=== PATIENT | male | born 1955 ===

== ENCOUNTER 2024-01-20 15:57 | Emergency (ER) | payer MEDICARE ==
[~2024-01-20] VITALS: Ht 177.8 cm; Wt 103.0 kg
[~2024-01-20 15:57] MED LIST: ALBU8HFA PO; ALLO300T8 PO; AMLO10TA13 PO; AZI25OT PO; CEFD300C3 PO; CYCL-1 PO; HYDR-3965 PO; HYDR25TA5 PO; LACT1CAP74 PO; LISI40TA13 PO; METO-395 PO; OMEP20CA16 PO; PRED20TA PO
[2024-01-20 16:00] VITALS: BP 123/71; PULSE 89; RESP 16; TEMP 99.1; O2SAT 97
== END 2024-01-20 16:46 | disposition home or self-care (01) ==
LOC: ER 15:58
DX: Z00.00 Encounter for general adult medical examination without abnormal findings (principal); I10 Essential (primary) hypertension; Z79.899 Other long term (current) drug therapy; Z79.52 Long term (current) use of systemic steroids
CPT/HCPCS: 99281

== ENCOUNTER 2024-07-10 17:24 | Inpatient (IN) | payer MEDICARE ==
[~2024-07-10] VITALS: Ht 177.8 cm; Wt 98.0 kg
[~2024-07-10 17:24] MED LIST changes: -ALBU8HFA PO; -CEFD300C3 PO; -HYDR-3965 PO; -PRED20TA PO
[2024-07-10 19:12] LABS: BASOPHILS % (AUTO) 0.2 % (0-1); EOSINOPHILS % (AUTO) 0 % (0-6); HEMATOCRIT 38.6 % (42.0-52.0); HEMOGLOBIN 13.7 g/dl (14.0-17.9); LYMPHOCYTES # (AUTO) 0.5 X10'3 (1.1-4.8); LYMPHOCYTES % (AUTO) 6.8 % (21-51); MEAN CORPUSCULAR HEMOGLOBIN 35.6 PG (27.0-31.0); MEAN CORPUSCULAR HGB CONC 35.4 g/dL (33.0-36.5); MEAN CORPUSCULAR VOLUME 100.7 FL (78-98); MEAN PLATELET VOLUME 8.4 FL (7.4-10.4); MONOCYTES # (AUTO) 0.7 X10'3 (0-0.9); MONOCYTES % (AUTO) 9.4 % (2-12); NEUTROPHILS # (AUTO) 6.1 X10'3 (1.8-7.7); NEUTROPHILS % (AUTO) 83.6 % (42-75); PLATELET COUNT 116 X10'3 (140-440); RED BLOOD COUNT 3.84 X10'6 (4.70-6.10); RED CELL DISTRIBUTION WIDTH 15.5 % (11.5-14.5); WHITE BLOOD COUNT 7.3 X10'3 (4.5-11.0)
[2024-07-10 19:27] LABS: ALANINE AMINOTRANSFERASE 212 U/L (12-78); ALBUMIN 3.6 G/DL (3.4-5.0); ALBUMIN/GLOBULIN RATIO 0.8 (1.1-1.5); ALKALINE PHOSPHATASE 187 IU/L (46-116); ANION GAP 23 (8-16); ASPARTATE AMINO TRANSFERASE 270 U/L (10-37); BILIRUBIN,TOTAL 1.2 MG/DL (0.1-1.0); BLOOD UREA NITROGEN 23 MG/DL (7-18); BUN/CREATININE RATIO 21.5 (10.0-20.0); CALCIUM 9.3 MG/DL (8.5-10.1); CHLORIDE 84 MMOL/L (99-107); CREATININE 1.07 MG/DL (0.60-1.10); ETHANOL 71 MG/DL (<10); GLUCOSE 115 MG/DL (70-104); POTASSIUM 3.9 MMOL/L (3.5-5.1); SODIUM 123 MMOL/L (135-145); TOTAL CARBON DIOXIDE 16.1 MMOL/L (24-32); TOTAL PROTEIN 8.1 G/DL (6.4-8.2); eCRCL 67 ML/MIN; eGFR 69 ML/MIN
[2024-07-10 20:18] LABS: OSMOLALITY 283 MOSM/K (280-300)
[2024-07-10 20:23] LABS: MAGNESIUM 1.5 MG/DL (1.5-2.4)
[2024-07-10] MEDS: sodium chloride 1gm tablet PO ONE (20:26)
[2024-07-10] MEDS: thiamine 100mg/ml 2ml inj. IV ONE (20:26)
[2024-07-10] MEDS: ondansetron/PF 4mg/2ml inj IV ONE (20:26)
[2024-07-10] MEDS: normal saline 1000ML IV soln IVB ONE (20:27)
[2024-07-10] MEDS ORDERED: ondansetron/PF 4mg/2ml inj IV PRN (21:25)
[2024-07-10] MEDS ORDERED: LORazepam 2 mg/ml vial IV PRN (21:25)
[2024-07-10] MEDS ORDERED: potassium Cl 20 mEq SR tablet PO PRN ×2 (21:25)
[2024-07-10] MEDS ORDERED: acetaminophen 325mg tablet PO PRN ×2 (21:25)
[2024-07-10] MEDS ORDERED: magnesium hydroxide 30ml (MOM) UD suspension PO PRN (21:25)
[2024-07-10] MEDS ORDERED: magnesium Cl slow-release 64mg tablet PO PRN (21:25)
[2024-07-10] MEDS ORDERED: loperamide 2mg capsule PO PRN (21:25)
[2024-07-10] MEDS ORDERED: potassium Cl 40MEQ/1/2NS 520ml 520 ML IV PRN (21:25)
[2024-07-10] MEDS ORDERED: dextrose 50%-water 50ml dispensing syringe IV PRN (21:25)
[2024-07-10] MEDS ORDERED: mag hydrox/Alum hydrox/simeth 30ml oral suspension PO PRN (21:25)
[2024-07-10] MEDS ORDERED: albuterol 2.5 MG/3 ML nebule NEB PRN (21:25)
[2024-07-10] MEDS ORDERED: ipratropium/albuterol 3ml nebule NEB PRN (21:25)
[2024-07-10] MEDS ORDERED: magnesium sulf-water 4G/100mL 100 ML IV PRN ×2 (21:25)
[2024-07-10] MEDS ORDERED: magnesium sulf-water 2g/50mL 50 ML IV PRN ×2 (21:25)
[2024-07-10 22:05] LABS: APTT 27 SECONDS (22-32); INR 1.1 INR; PROTHROMBIN TIME 11.5 SECONDS (9.0-12.0)
[2024-07-10 22:07] LABS: PHOSPHORUS 3.4 MG/DL (2.3-4.5)
[2024-07-10] MEDS: normal saline 1000ml 1,000 ML IV SCH (22:16)
[2024-07-10 22:29] LABS: HEMOGLOBIN A1C 5.1 % (4.5-6.2)
[2024-07-10] MEDS: nicotine 21mg patch - 24 hr TD SCH (22:33)
[2024-07-10 23:27] LABS: BILIRUBIN,URINE NEGATIVE (Neg); CLARITY,URINE CLEAR (Clear); COLOR,URINE YELLOW (Yellow); GLUCOSE, URINE NEGATIVE (Neg); KETONES,URINE 15 mg/dl (Neg); LEUKOCYTE ESTERASE ,URINE NEGATIVE (Neg); NITRITES, URINE NEGATIVE (Neg); OCCULT BLOOD,URINE NEGATIVE (Neg); PH,URINE 5.5 (4.8-8.0); PROTEIN,URINE 100 mg/dl (Neg)
[2024-07-10 23:28] LABS: UA COLLECTION TYPE URINAL
[2024-07-10 23:33] LABS: BACTERIA,URINE 1+ /HPF (Neg); MUCUS STRANDS MODERATE /LPF (Neg); RBC,URINE NONE SEEN /HPF (0-2); SQUAMOUS EPITHELIAL CELL,UR FEW /LPF (FEW)
[2024-07-10 23:34] LABS: WBC,URINE 0-4 /HPF (0-4)
[2024-07-10 23:44] LABS: URINE AMPHETAMINE SCREEN NEGATIVE (Neg); URINE BARBITUATE SCREEN NEGATIVE (Neg); URINE BENZODIAZEPINES SCREEN NEGATIVE (Neg); URINE CANNABINOID SCREEN NEGATIVE (Neg); URINE COCAINE SCREEN NEGATIVE (Neg); URINE METHADONE SCREEN NEGATIVE (Neg); URINE OPIATE SCREEN NEGATIVE (Neg); URINE PHENCYCLIDINE SCREEN NEGATIVE (Neg)
[2024-07-10 23:46] LABS: OSMOLALITY UA 391.5 MOSM/K (50-1400)
[2024-07-10 23:56] LABS: SODIUM,URINE RANDOM < 15 MEQ/L; TOTAL PROTEIN,URINE RANDOM 146.4 MG/DL
[2024-07-11] MEDS: LORazepam 2 mg/ml vial IV PRN (00:13)
[2024-07-11 01:42] LABS: ALANINE AMINOTRANSFERASE 186 U/L (12-78); ALBUMIN 3.3 G/DL (3.4-5.0); ALBUMIN/GLOBULIN RATIO 0.8 (1.1-1.5); ALKALINE PHOSPHATASE 165 IU/L (46-116); ANION GAP 13 (8-16); ASPARTATE AMINO TRANSFERASE 212 U/L (10-37); BILIRUBIN,TOTAL 1.5 MG/DL (0.1-1.0); BLOOD UREA NITROGEN 27 MG/DL (7-18); BUN/CREATININE RATIO 20.6 (10.0-20.0); CALCIUM 8.8 MG/DL (8.5-10.1); CHLORIDE 89 MMOL/L (99-107); CREATININE 1.31 MG/DL (0.60-1.10); GLUCOSE 88 MG/DL (70-104); POTASSIUM 4.2 MMOL/L (3.5-5.1); SODIUM 124 MMOL/L (135-145); TOTAL CARBON DIOXIDE 21.7 MMOL/L (24-32); TOTAL PROTEIN 7.3 G/DL (6.4-8.2); eCRCL 55 ML/MIN; eGFR 54 ML/MIN
[2024-07-11 03:10] LABS: BASOPHILS % (AUTO) 0.3 % (0-1); EOSINOPHILS % (AUTO) 0.1 % (0-6); HEMATOCRIT 35.1 % (42.0-52.0); LYMPHOCYTES # (AUTO) 1.8 X10'3 (1.1-4.8); LYMPHOCYTES % (AUTO) 20.6 % (21-51); MEAN CORPUSCULAR HEMOGLOBIN 34.5 PG (27.0-31.0); MEAN CORPUSCULAR HGB CONC 34.2 g/dL (33.0-36.5); MEAN CORPUSCULAR VOLUME 100.9 FL (78-98); MEAN PLATELET VOLUME 8.2 FL (7.4-10.4); MONOCYTES # (AUTO) 1.1 X10'3 (0-0.9); MONOCYTES % (AUTO) 12.7 % (2-12); NEUTROPHILS # (AUTO) 5.7 X10'3 (1.8-7.7); NEUTROPHILS % (AUTO) 66.3 % (42-75); PLATELET COUNT 99 X10'3 (140-440); RED BLOOD COUNT 3.48 X10'6 (4.70-6.10); RED CELL DISTRIBUTION WIDTH 15.9 % (11.5-14.5); WHITE BLOOD COUNT 8.6 X10'3 (4.5-11.0)
[2024-07-11 03:30] LABS: BILIRUBIN,TOTAL 1.5 MG/DL (0.1-1.0); BLOOD UREA NITROGEN 26 MG/DL (7-18); BUN/CREATININE RATIO 20.3 (10.0-20.0); CREATININE 1.28 MG/DL (0.60-1.10); GLUCOSE 83 MG/DL (70-104); MAGNESIUM 1.5 MG/DL (1.5-2.4); PHOSPHORUS 2.9 MG/DL (2.3-4.5); POTASSIUM 3.9 MMOL/L (3.5-5.1); SODIUM 126 MMOL/L (135-145); TOTAL CARBON DIOXIDE 23.6 MMOL/L (24-32); eCRCL 56 ML/MIN; eGFR 56 ML/MIN
[2024-07-11 03:31] LABS: ALANINE AMINOTRANSFERASE 188 U/L (12-78); ALBUMIN 3.3 G/DL (3.4-5.0); ALBUMIN/GLOBULIN RATIO 0.9 (1.1-1.5); ALKALINE PHOSPHATASE 165 IU/L (46-116); ASPARTATE AMINO TRANSFERASE 214 U/L (10-37); CHOL/HDL RATIO 1.6 (0.00-4.99); CHOLESTEROL 117 MG/DL (0-200); HDL CHOLESTEROL 75 MG/DL (35-60); LDL CHOLESTEROL 18 MG/DL (50-100); TOTAL PROTEIN 7.1 G/DL (6.4-8.2); TRIGLYCERIDES 47 MG/DL (20-135)
[2024-07-11 03:32] LABS: ANION GAP 11 (8-16); CHLORIDE 91 MMOL/L (99-107)
[2024-07-11] MEDS: haloperidol lactate 5mg/ml inj IM PRN (03:45)
[2024-07-11] MEDS: HYDROcodone/acetaminophen 5mg/325mg tablet PO PRN (06:00)
[2024-07-11] MEDS: K and/or MAG REPLACEMENT MC SCH (08:00)
[2024-07-11] MEDS ORDERED: diazepam inj 5 MG/ML inj. IV PRN (09:00)
[2024-07-11] MEDS: thiamine 100mg/ml 2ml inj. IV SCH (09:12)
[2024-07-11] MEDS: pantoprazole 40 MG vial IV SCH (09:12)
[2024-07-11] MEDS: enoxaparin 40mg/0.4ml syringe SUBCUT SCH (09:13)
[2024-07-11] MEDS: docusate sod 100mg capsule PO SCH (09:13)
[2024-07-11] MEDS: folic acid 1mg/0.2ml inj IV SCH (09:14)
[2024-07-11] MEDS ORDERED: GABA300C PO (11:09)
[2024-07-11 12:12] VITALS: PULSE 118; RESP 18; O2SAT 98
[2024-07-11] MEDS ORDERED: iohexol 300mg/ml 100ml inj. ONE (12:49)
[2024-07-11 13:03] LABS: C DIFF ANTIGEN NEGATIVE (NEGATIVE); C DIFF SPECIMEN=DIARRHEA? ACCEPTABLE; C DIFFICILE TOXINS A&B NEGATIVE (Neg)
[2024-07-11] MEDS: diazepam inj 5 MG/ML inj. IV PRN (13:41)
[2024-07-11 14:37] VITALS: BP 140/79; PULSE 108; RESP 17; TEMP 98.6; O2SAT 99
[2024-07-11 18:00] VITALS: BP 131/73; PULSE 102; RESP 16; TEMP 99; O2SAT 97
[2024-07-11 20:26] VITALS: PULSE 97; RESP 20; O2SAT 97
[2024-07-11 22:00] VITALS: BP 152/85; PULSE 95; RESP 20; TEMP 98.3; O2SAT 95
[2024-07-12] VITALS (8 sets, daily range): BP systolic 104–144; BP diastolic 65–83; PULSE 76–97; RESP 16–19; TEMP 97.7–98.8; O2SAT 97–99
[2024-07-12 05:11] LABS: BASOPHILS % (AUTO) 0.7 % (0-1); EOSINOPHILS % (AUTO) 0.9 % (0-6); HEMATOCRIT 32.9 % (42.0-52.0); HEMOGLOBIN 11.4 g/dl (14.0-17.9); LYMPHOCYTES # (AUTO) 1.3 X10'3 (1.1-4.8); LYMPHOCYTES % (AUTO) 25.4 % (21-51); MEAN CORPUSCULAR HEMOGLOBIN 35.4 PG (27.0-31.0); MEAN CORPUSCULAR HGB CONC 34.6 g/dL (33.0-36.5); MEAN CORPUSCULAR VOLUME 102.4 FL (78-98); MEAN PLATELET VOLUME 8.6 FL (7.4-10.4); MONOCYTES # (AUTO) 0.6 X10'3 (0-0.9); MONOCYTES % (AUTO) 11.5 % (2-12); NEUTROPHILS # (AUTO) 3.1 X10'3 (1.8-7.7); NEUTROPHILS % (AUTO) 61.5 % (42-75); PLATELET COUNT 77 X10'3 (140-440); RED BLOOD COUNT 3.21 X10'6 (4.70-6.10); RED CELL DISTRIBUTION WIDTH 15.8 % (11.5-14.5)
[2024-07-12 05:36] LABS: ALANINE AMINOTRANSFERASE 159 U/L (12-78); ALBUMIN 3.2 G/DL (3.4-5.0); ALBUMIN/GLOBULIN RATIO 0.9 (1.1-1.5); ALKALINE PHOSPHATASE 149 IU/L (46-116); ANION GAP 7 (8-16); ASPARTATE AMINO TRANSFERASE 170 U/L (10-37); BILIRUBIN,TOTAL 1.7 MG/DL (0.1-1.0); BLOOD UREA NITROGEN 17 MG/DL (7-18); CALCIUM 9.3 MG/DL (8.5-10.1); CHLORIDE 96 MMOL/L (99-107); GLUCOSE 95 MG/DL (70-104); MAGNESIUM 1.3 MG/DL (1.5-2.4); PHOSPHORUS 1.8 MG/DL (2.3-4.5); POTASSIUM 4.1 MMOL/L (3.5-5.1); PRO BRAIN NATRIURETIC PEPTIDE 531 PG/ML (0-125); SODIUM 133 MMOL/L (135-145); TOTAL CARBON DIOXIDE 30.1 MMOL/L (24-32); TOTAL PROTEIN 6.9 G/DL (6.4-8.2); eCRCL 72 ML/MIN; eGFR 74 ML/MIN
[2024-07-12] MEDS: allopurinol 300 MG tablet PO SCH (08:47)
[2024-07-12] MEDS: metoprolol succinate 25mg (24-HOUR) SR. Tablet PO SCH (08:48)
[2024-07-12] MEDS: HYDROchlorothiazide 25mg tablet PO SCH (08:48)
[2024-07-12] MEDS: amLODIPine 5mg tablet PO SCH (08:51)
[2024-07-12] MEDS: lisinopril 20mg tablet PO SCH (08:52)
[2024-07-12] MEDS: magnesium Cl slow-release 64mg tablet PO PRN (09:07)
[2024-07-12 11:23] LABS: LIPASE 222 U/L (16-77)
[2024-07-12] MEDS: Neutra Phos packet PO ONE (12:41)
[2024-07-12] MEDS: piperacillin/tazo 3.375gm/50ml 50 ML IV SCH (17:22)
[2024-07-13 06:00] VITALS: BP 141/77; PULSE 74; RESP 18; TEMP 98; O2SAT 99
[2024-07-13 06:23] LABS: ALANINE AMINOTRANSFERASE 164 U/L (12-78); ALBUMIN 3.3 G/DL (3.4-5.0); ALBUMIN/GLOBULIN RATIO 0.8 (1.1-1.5); ALKALINE PHOSPHATASE 164 IU/L (46-116); ANION GAP 11 (8-16); ASPARTATE AMINO TRANSFERASE 170 U/L (10-37); BILIRUBIN,TOTAL 1.5 MG/DL (0.1-1.0); BLOOD UREA NITROGEN 13 MG/DL (7-18); BUN/CREATININE RATIO 14.4 (10.0-20.0); CALCIUM 9.1 MG/DL (8.5-10.1); CHLORIDE 95 MMOL/L (99-107); GLUCOSE 105 MG/DL (70-104); MAGNESIUM 1.1 MG/DL (1.5-2.4); PHOSPHORUS 2.1 MG/DL (2.3-4.5); POTASSIUM 3.9 MMOL/L (3.5-5.1); SODIUM 132 MMOL/L (135-145); TOTAL PROTEIN 7.5 G/DL (6.4-8.2); eCRCL 80 ML/MIN; eGFR 84 ML/MIN
[2024-07-13 06:25] LABS: BASOPHILS # (AUTO) 0.1 X10'3 (0-0.2); BASOPHILS % (AUTO) 1.1 % (0-1); EOSINOPHILS # (AUTO) 0.1 X10'3 (0-0.9); EOSINOPHILS % (AUTO) 1.8 % (0-6); HEMATOCRIT 33.8 % (42.0-52.0); HEMOGLOBIN 11.6 g/dl (14.0-17.9); LYMPHOCYTES # (AUTO) 1.4 X10'3 (1.1-4.8); LYMPHOCYTES % (AUTO) 27.1 % (21-51); MEAN CORPUSCULAR HEMOGLOBIN 35.3 PG (27.0-31.0); MEAN CORPUSCULAR HGB CONC 34.5 g/dL (33.0-36.5); MEAN CORPUSCULAR VOLUME 102.4 FL (78-98); MEAN PLATELET VOLUME 8.8 FL (7.4-10.4); MONOCYTES # (AUTO) 0.5 X10'3 (0-0.9); MONOCYTES % (AUTO) 9.7 % (2-12); NEUTROPHILS # (AUTO) 3.2 X10'3 (1.8-7.7); NEUTROPHILS % (AUTO) 60.3 % (42-75); PLATELET COUNT 96 X10'3 (140-440); RED CELL DISTRIBUTION WIDTH 15.7 % (11.5-14.5); WHITE BLOOD COUNT 5.3 X10'3 (4.5-11.0)
[2024-07-13 08:00] VITALS: BP_SYST 104; BP_SYST 117; BP_SYST 125; BP_DIAS 66; BP_DIAS 72; BP_DIAS 73; PULSE 81; PULSE 95; PULSE 99
[2024-07-13] MEDS ORDERED: FOLI0.4T6 PO (08:10)
[2024-07-13] MEDS ORDERED: CHLO25CA10 PO (08:10)
[2024-07-13] MEDS ORDERED: THIA50TA10 PO (08:10)
[2024-07-13 08:15] VITALS: RESP 18; O2SAT 99
[2024-07-13] MEDS: lactose-reduced food (Ensure Enlive) - 237ml bottle PO SCH (08:24)
[2024-07-13 10:00] VITALS: BP 125/73; PULSE 81; RESP 18; TEMP 97.6; O2SAT 99
[2024-07-14] MEDS ORDERED: folic acid 1mg tablet PO SCH (08:00)
[2024-07-14] MEDS ORDERED: thiamine 100mg tablet PO SCH (08:00)
== END 2024-07-13 15:25 | disposition home or self-care (01) | DRG 682 ==
LOC: ER 17:25 → ED HOLD 21:18 → ORTHO 4S 07-11 14:25
PROVIDERS: ADMIT Internal Medicine; ATTEND Nurse Practitioner Family
PROC: BW211ZZ Computerized Tomography (CT Scan) of Abdomen and Pelvis using Low Osmolar Contrast (ICD-10-PCS; principal; 2024-07-11)
DX: N17.0 Acute kidney failure with tubular necrosis (principal); K83.1 Obstruction of bile duct; E87.1 Hypo-osmolality and hyponatremia; F10.139 Alcohol abuse with withdrawal, unspecified; E87.20 Acidosis, unspecified; F10.129 Alcohol abuse with intoxication, unspecified; Y92.89 Other specified places as the place of occurrence of the external cause; E87.8 Other disorders of electrolyte and fluid balance, not elsewhere classified; D53.9 Nutritional anemia, unspecified; E27.9 Disorder of adrenal gland, unspecified; I10 Essential (primary) hypertension; K76.0 Fatty (change of) liver, not elsewhere classified; R29.6 Repeated falls; R19.7 Diarrhea, unspecified; F17.210 Nicotine dependence, cigarettes, uncomplicated; Y90.3 Blood alcohol level of 60-79 mg/100 ml; T73.0XXA Starvation, initial encounter; X58.XXXA Exposure to other specified factors, initial encounter; R41.3 Other amnesia; Z79.899 Other long term (current) drug therapy
CPT/HCPCS: 36415; 71045; 73030; 74177; 76700; 80053; 80061; 80305; 80320; 81001; 82570; 82607; 83036; 83605; 83690; 83735; 83880; 83930; 83935; 84100; 84145; 84156; 84300; 85025; 85610; 85730; 86885; 86900; 86901; 87045; 87046; 87081; 87324; 87449; 89055; 92508; 92616; 93005; 93308; 94760; 96361; 96374; 96375; 97161; 97530; 99285; A6258; G0378; J1630; J1650; J2060; J2405; J2470; J2543; J3360; J3411; J3490; J7030; Q9967